=== PATIENT | male | born 1995 | race Caucasian/White ===

== ENCOUNTER 2018-05-25 08:37 | Emergency (ER) | payer OTHER ==
[~2018-05-25] VITALS: Ht 172.7 cm; Wt 93.6 kg
[2018-05-25 09:02] VITALS: BP 118/74
[2018-05-25] MEDS ORDERED: ketorolac trometh. 30mg/ml inj. IM ONE (10:20)
[2018-05-25] MEDS ORDERED: CYCL-1 PO (10:57)
== END 2018-05-25 11:23 | disposition home or self-care (01) ==
LOC: ER 08:37
DX: S16.1XXA Strain of muscle, fascia and tendon at neck level, initial encounter (principal); S29.012A Strain of muscle and tendon of back wall of thorax, initial encounter; Z79.899 Other long term (current) drug therapy; V43.52XA Car driver injured in collision with other type car in traffic accident, initial encounter; Y93.89 Activity, other specified; Y92.410 Unspecified street and highway as the place of occurrence of the external cause; Y99.8 Other external cause status
CPT/HCPCS: 72074; 96372; 99283; J1885